=== PATIENT | male | born 1980 | race Caucasian/White ===

== ENCOUNTER 2024-04-26 18:45 | Emergency (ER) | payer MEDICARE ==
[~2024-04-26] VITALS: Ht 188 cm; Wt 113.0 kg
[~2024-04-26 18:45] MED LIST: AMLO10TA55 PO; ERGO500054 PO; GABA-1181 PO; LEVE-71 PO; OXYC10TA92 PO; SERT-158 PO
[2024-04-26] MEDS ORDERED: IOHEXOL 350 MG/ML 100 ML VIAL ONE ×2 (19:21→19:35)
[2024-04-26] MEDS ORDERED: SODIUM CHLORIDE 0.9% 100 ML ONE ×2 (19:21→19:35)
[2024-04-26 19:45] LABS: BASOPHILS % (AUTO) 0.6 % (0.0-2.0); EOSINOPHILS % (AUTO) 1.4 % (1.0-6.0); HEMOGLOBIN 13.5 g/dL (13.5-17.5); LYMPHOCYTES % (AUTO) 20.6 % (22.0-44.0); MEAN CORPUSCULAR HEMOGLOBIN 23.4 pg (26.0-34.0); MEAN CORPUSCULAR HGB CONC 31.5 G/dL (31.0-37.0); MEAN CORPUSCULAR VOLUME 74 fL (80-100); MONOCYTES # (AUTO) 0.6 K/uL (0.1-1.0); MONOCYTES % (AUTO) 6.7 % (2.0-9.0); NEUTROPHILS # (AUTO) 6.9 K/uL (1.8-7.7); NEUTROPHILS % (AUTO) 70.7 % (40.0-70.0); PLATELET COUNT (AUTO) 236 K/uL (150-450); RED BLOOD CELL COUNT(AUTO) 5.79 MIL/uL (4.50-5.90); RED CELL DISTRIBUTION WIDTH 16.9 % (11.5-14.5); WHITE BLOOD COUNT (AUTO) 9.7 K/uL (4.5-11.0)
[2024-04-26 19:48] LABS: CALCIUM, TOTAL 9.3 mg/dL (8.8-10.5); CREATININE 1.42 mg/dL (0.60-1.30); POTASSIUM 3.9 mmol/L (3.5-5.1)
[2024-04-26 19:54] LABS: ALBUMIN 4.1 g/dL (3.4-5.0); BILIRUBIN,TOTAL 0.7 mg/dL (0.1-1.0); TOTAL PROTEIN, SERUM 7.9 g/dL (6.4-8.2)
[2024-04-26 19:57] LABS: TROPONIN I-HIGH SENSITIVITY Less Than 4 ng/L (<76)
[2024-04-26] MEDS: DiphenhydrAMINE HCL 50 MG/ML VIAL IVP ONE (20:02)
[2024-04-26] MEDS: HYDROmorphone HCL 2 MG/ML SYRINGE IVP ONE ×2 (20:05→22:03)
[2024-04-26 20:50] LABS: RBC MORPHOLOGY COMMENT ABNORMAL RBC MORPH
[2024-04-26 20:52] LABS: PROTHROMBIN TIME 11.8 SEC (9.4-11.6)
[2024-04-26 20:53] LABS: COVID AG,FIA SOURCE NASAL SWAB
[2024-04-26] MEDS ORDERED: ASPIRIN 325 MG TABLET PO ONE (21:00)
[2024-04-26 21:14] LABS: SARS-COV2 (COVID) ANTIGEN,FIA Negative (Negative)
[2024-04-26 22:00] LABS: GLUCOMETER DEV NAME(LOC) ER.7; GLUCOSE,POINT OF CARE 67 MG/DL (70-110)
[2024-04-26] MEDS: HydrALAZINE HCL 20 MG/ML VIAL IVP ONE (22:03)
[2024-04-26 22:17] VITALS: BP 148/95; PULSE 87; RESP 21; TEMP 98.6; O2SAT 98
== END 2024-04-26 22:40 | disposition short-term general hospital (02) ==
LOC: EMS 18:45
DX: I63.9 Cerebral infarction, unspecified (principal); E11.9 Type 2 diabetes mellitus without complications; Z79.01 Long term (current) use of anticoagulants; Z86.711 Personal history of pulmonary embolism; Z88.5 Allergy status to narcotic agent; Z88.8 Allergy status to other drugs, medicaments and biological substances; Z98.2 Presence of cerebrospinal fluid drainage device; Z20.822 Contact with and (suspected) exposure to COVID-19
CPT/HCPCS: 99285; 70496; 96374; 96375; 71045; 87426; 80053; 82962; 84484; 85025; 85610; 85730; 36415; 70250; 74018; 70498; 93005; 70450; 82948; 96376; G0480; Q9967; J1200; J0360; J1171; J7050